=== PATIENT | female | born 1955 | race Caucasian/White ===

== ENCOUNTER 2018-05-20 11:51 | Inpatient (IN) | payer OTHER ==
[~2018-05-20] VITALS: Ht 160 cm; Wt 111.6 kg
[2018-05-20] MEDS ORDERED: LABETALOL HCL 5 MG/ML 20ML VIAL IV STA (12:20)
[2018-05-20 12:47] LABS: BASOPHILS % 0.5 % (0.0-1.0); EOSINOPHILS # (AUTO) 0.1 (0.0-0.4); EOSINOPHILS % 1.5 % (0.0-6.0); HEMATOCRIT 47.3 % (34.2-44.1); HEMOGLOBIN 15.2 g/dL (12.0-16.0); LYMPHOCYTES # (AUTO) 1.5 (1.0-3.2); LYMPHOCYTES % 18.7 % (18.0-39.1); MEAN CORPUSCULAR HGB CONC 32.1 g/dL (31-35); MEAN CORPUSCULAR VOLUME 93.5 fL (81-99); MONOCYTES # (AUTO) 0.5 (0.2-0.8); MONOCYTES % 6.8 % (4.4-11.3); NEUTROPHILS # (AUTO) 5.7 (2.1-6.9); NEUTROPHILS % 72.2 % (38.7-80.0); PLATELET COUNT 276 x10e3/uL (140-360); RED BLOOD COUNT 5.06 x10e6/uL (3.6-5.1)
[2018-05-20 12:53] LABS: INR 0.78; PROTHROMBIN TIME 11.3 seconds (11.9-14.5)
[2018-05-20 12:54] LABS: PARTIAL THROMBOPLASTIN TIME 52.4 seconds (23.8-35.5)
--- NOTE | 2018-05-20 12:54 | Diagnostic Imaging Report ---
Examination: Single AP view of the chest. COMPARISON: None. INDICATION: Left-sided weakness and numbness DISCUSSION: Lungs are well-inflated and without focal consolidation, pleural effusion, or pneumothorax. Cardiomediastinal contour and pulmonary vasculature are within normal limits for portable, AP technique. No acute osseous abnormality. Cervical spine fusion hardware. IMPRESSION: No acute cardiopulmonary abnormality. Signed by: Dr. David Vieyra M.D. on 05/20/2018 12:50 PM
[2018-05-20 12:56] LABS: ALANINE AMINOTRANSFERASE 9 IU/L (0-55); ALBUMIN 3.9 g/dL (3.5-5.0); ALBUMIN/GLOBULIN RATIO 0.9 (0.8-2.0); ALKALINE PHOSPHATASE 96 IU/L (40-150); ANION GAP 14.1 mmol/L (8-16); BLOOD UREA NITROGEN 9 mg/dL (7-26); BUN/CREATININE RATIO 12 (6-25); CALCIUM 10.2 mg/dL (8.4-10.2); CARBON DIOXIDE 23 mmol/L (22-29); CHLORIDE 104 mmol/L (98-107); CREATINE KINASE 105 IU/L (29-168); CREATININE, SERUM 0.74 mg/dL (0.57-1.11); EST GLOMERULAR FILTRATION RATE > 60 ML/MIN (60-); GLUCOSE 126 mg/dL (74-118); POTASSIUM 4.1 mmol/L (3.5-5.1); SODIUM 137 mmol/L (136-145)
--- NOTE | 2018-05-20 13:01 | Diagnostic Imaging Report ---
Exam: Head CT without contrast History: Left-sided weakness, numbness and dizziness Comparison studies: None Technique: Axial images were obtained from the skull base to the vertex. Coronal and sagittal images reconstructed from the axial data. Dose modulation, iterative reconstruction, and/or weight based adjustment of the mA/kV was utilized to reduce the radiation dose to as low as reasonably achievable. Radiation dose: Total DLP: 832 mGy*cm. Estimated effective dose: DLP x 0.015 Intravenous contrast: None Findings: Scalp: No abnormalities. Bones: No fractures, blastic or lytic lesions. Brain sulci: Appropriate for age. Ventricles: Normal in size and configuration. No hydrocephalus. Extra-axial spaces: No masses, no fluid collection. Parenchyma: No abnormal densities. No mass, acute hemorrhage or acute or chronic cortical insult.. Sellar/suprasellar region: No abnormalities. Craniocervical junction: Patent foramen magnum. No Chiari one malformation. Incidental findings: Atherosclerotic calcifications in the carotid siphons. IMPRESSION: No acute intracranial abnormalities. Signed by: Dr. David Echavarria M.D. on 05/20/2018 12:57 PM
[2018-05-20 13:19] LABS: BILIRUBIN,URINE NEGATIVE (NEGATIVE); CLARITY,URINE SL CLOUDY (CLEAR); COLOR,URINE YELLOW (YELLOW); KETONES,URINE NEGATIVE (NEGATIVE); LEUKOCYTE ESTERASE ,URINE TRACE (NEGATIVE); NITRITE,URINE NEGATIVE (NEGATIVE); PROTEIN,URINE DIPSTICK NEGATIVE (NEGATIVE); URINE UROBILINOGEN 0.2 mg/dL (0.2 - 1)
[2018-05-20 13:22] LABS: BACTERIA,URINE MODERATE /HPF; EPITHELIAL CELLS,URINE MANY /LPF
[2018-05-20] MEDS ORDERED: HYDRALAZINE HCL 20 MG/ML VIAL IV ONE (14:00)
[2018-05-20] MEDS ORDERED: ASPIRIN 81 MG CHEW TAB PO ONE (14:00)
--- OUTSIDE RECORDS SUMMARY | 2018-05-20 15:03 | XMS REPORT ---
Author Author [facility] Address Unknown Phone Unavailable Care Team Providers Care Sock Drier Name Role Phone Becca BUSH Unavailable Unavailable Problems This patient has no known problems. Allergies, Adverse Reactions, Alerts This patient has no known allergies or adverse reactions. Medications This patient has no known medications. Results Test Description Test Time Test Comments Text Results Atomic Results Result Comments CT BRAIN WO 2018-05-20 12:55:00 [facility] [address] [address] Patient Name: AILYN PAYTON MR #: [id number] : 1955 Age/Sex: 62/F Req #: [id number] Adm Physician: Ordered by: PO IBARRA BENCH SHEAR OPERATOR Report #: [id number] Location: ER Room/Bed: Procedure: [id number] CT/CT BRAIN WO Exam Date: 05/20/18 Exam Time: 1225 REPORT STATUS: Signed Exam: Head CT without contrast History: Left-sided weakness, numbness and dizziness Comparison studies: None Technique: Axial images were obtained from the skull base to the vertex. Coronal and sagittal images reconstructed from the axial data. Dose modulation, iterative reconstruction, and/or weight based adjustment of the mA/kV was utilized to reduce the radiation dose to as low as reasonably achievable. Radiation dose: Total DLP: 832 mGy*cm. Estimated effective dose: DLP x 0.015 Intravenous contrast: None Findings: Scalp: No abnormalities. Bones: No fractures, blastic or lytic lesions. Brain sulci: Appropriate for age. Ventricles: Normal in size and configuration. No hydrocephalus. Extra-axial spaces: No masses, no fluid collection. Parenchyma: No abnormal densities. No mass, acute hemorrhage or acute or chronic cortical insult.. Sellar/suprasellar region: No abnormalities. Craniocervical junction: Patent foramen magnum. No Chiari one malformation. Incidental findings: Athe rosclerotic calcifications in the carotid siphons. IMPRESSION: No acute intracranial abnormalities. Signed by: Dr. Peggy Echavarria M.D. on 05/20/2018 12:57 PM Dictated By: PEGGY ECHAVARRIA MD [id number] Transcribed By: JEFFERY on 05/20/18 1257 COPY TO: PO IBARRA NP CHEST SINGLE (PORTABLE) 2018-05-20 12:49:00 [address] [address] Patient Name: AILYN PAYTON MR #: [id number] : 1955 Age/Sex: 62/F Req #: [id number] Adm Physician: Ordered by: PO IBARRA NP Report #: [id number] Location: ER Room/Bed: Procedure: [id number] DX/CHEST SINGLE (PORTABLE) Exam Date: 05/20/18 Exam Time: 1240 REPORT STATUS: Signed Examination: Single AP view of the chest. COMPARIS ON: None. INDICATION: Left-sided weakness and numbness DISCUSSION: Lungs are well-inflated and without focal consolidation, pleural effusion, or pneumothorax. Cardiomediastinal contour and pulmonary vasculature are within normal limits for portable, AP technique. No acute osseous abnormality. Cervical spine fusion hardware. IMPRESSION: No acute cardiopulmonary abnormality. Signed by: Dr. Peggy Watt M.D. on 05/20/2018 12:50 PM Dictated By: PEGGY WATT MD 1250 Transcribed By: JEFFERY on 05/20/18 1250 COPY TO: PO IBARRA NP
[2018-05-20] MEDS ORDERED: LORAZEPAM INJ 2 MG/ML VIAL ONE (15:44)
[2018-05-20] MEDS ORDERED: LORAZEPAM INJ 2 MG/ML VIAL IV ONE ×2 (15:45→16:16)
[2018-05-20 17:38] VITALS: BP 185/94
[2018-05-20] MEDS: SODIUM CHLORIDE 0.9% 1000ML 1,000 ML IV SCH (17:59)
--- NOTE | 2018-05-20 18:08 | NUR ---
PAGED DR. SWENSON REGARDING BP 185/94. WAITING FOR CALL BACK AT THIS TIME.
[2018-05-20] MEDS ORDERED: AMLODIPINE BESYLATE 5 MG TAB PO ONE (18:15)
[2018-05-20 18:18] VITALS: BP 185/94
[2018-05-20 18:20] VITALS: BP 185/94
--- NOTE | 2018-05-20 18:30 | NUR ---
SPOKE WITH DR. MARTINEZ REGARDING ELEVATED BP. ORDER FOR NORVASC 5 MG PO ONCE NOW AND LISINOPRIL 10 MG PO AT 2100.
[2018-05-20 20:00] VITALS: BP 169/99
--- NOTE | 2018-05-20 20:54 | NUR ---
x3 assist to bedside commode, patient very unsteady, weak and unsafe for transfers. Iv to R AC bleeding, and removed, pressure dressing applied. linens changed, gown changed, new IV to be started. patient back in bed, diaper applied, instructed to call for bedpan for voiding/BM's. bed alarm applied. instructed family members on importance of calling for assistance, all verbalized understanding. bed locked, lowest position, call light and belongings within easy reach. will continue to monitor the patient closely.
[2018-05-20 21:00] VITALS: BP 169/99
[2018-05-20] MEDS ORDERED: LISINOPRIL 10 MG TAB PO SCH (21:00)
[2018-05-20] MEDS ORDERED: LISINOPRIL 10 MG TAB PO ONE (21:00)
--- NOTE | 2018-05-20 21:02 | Diagnostic Imaging Report ---
EXAMINATION: MRI of the brain without contrast. HISTORY: Left-sided weakness and numbness for the last day COMPARISON: Head CT 05/20/2018 TECHNIQUE: Sagittal T2; axial DWI, T2, FLAIR, T1-IR, T2 gradient echo; coronal FLAIR. IMAGE QUALITY: Motion artifact limiting evaluation of all of the sequences.. FINDINGS: Parenchyma: 1. A few scattered white matter T2 and FLAIR hyperintense foci, most likely nonspecific chronic microvascular changes, within normal limits for age. 2. No mass, hemorrhage, acute or chronic infarcts. Skull: Unremarkable. Vessels: Expected flow voids present in the major arteries and dural sinuses. Extra-axial spaces: No abnormal signal intensity or mass effect. Brain volume: Within normal limits for age. Ventricles: No hydrocephalus or displacement. Foramen magnum: Unremarkable. Sella: Unremarkable. Paranasal / mastoid sinuses: No significant inflammatory disease. IMPRESSION: 1. No acute infarcts. 2. Mild chronic microvascular ischemic changes. Signed by: Dr. Adelina Shultz M.D. on 05/20/2018 8:59 PM
--- NOTE | 2018-05-20 23:32 | NUR ---
patient is restless, anxious, and becoming increasingly agitated. spoke with dr. rubio, chlorination operator for dr. horner, received and implemented new orders.
[2018-05-20] MEDS: LORAZEPAM 0.5 MG TAB PO PRN (23:52)
[2018-05-21] VITALS (8 sets, daily range): BP systolic 136–178; BP diastolic 65–96
[2018-05-21] MEDS: ONDANSETRON HCL INJ 2MG/ML 2ML 2 MG/ML VIAL IV PRN (00:30)
[2018-05-21] MEDS: SODIUM CHLORIDE 0.9% 1000ML 1,000 ML IV SCH ×2 (03:13→10:44)
--- NOTE | 2018-05-21 06:18 | Diagnostic Imaging Report ---
Examination: Single AP view of the chest. COMPARISON: May 20, 2018 INDICATION: Altered mental status DISCUSSION: Lines/tubes: None. Lungs: The lungs are well inflated and clear. No pneumonia or pulmonary edema. Pleura: No pleural effusion or pneumothorax. Heart and mediastinum: The heart and the mediastinum are unremarkable. Bones and soft tissues: No acute bony abnormalities. IMPRESSION: 1. No acute cardiopulmonary abnormalities. Signed by: Dr. Trae Machuca M.D. on 05/21/2018 6:14 AM
[2018-05-21 06:35] LABS: BASOPHILS % 0.3 % (0.0-1.0); EOSINOPHILS % 0.2 % (0.0-6.0); HEMATOCRIT 39.2 % (34.2-44.1); HEMOGLOBIN 12.7 g/dL (12.0-16.0); LYMPHOCYTES # (AUTO) 1.4 (1.0-3.2); LYMPHOCYTES % 16.2 % (18.0-39.1); MEAN CORPUSCULAR HEMOGLOBIN 30.2 pg (28-32); MEAN CORPUSCULAR HGB CONC 32.4 g/dL (31-35); MEAN CORPUSCULAR VOLUME 93.3 fL (81-99); MONOCYTES # (AUTO) 0.6 (0.2-0.8); MONOCYTES % 7.3 % (4.4-11.3); NEUTROPHILS # (AUTO) 6.6 (2.1-6.9); NEUTROPHILS % 75.7 % (38.7-80.0); PLATELET COUNT 231 x10e3/uL (140-360); RED CELL DISTRIBUTION WIDTH 13.2 % (11.7-14.4)
[2018-05-21 06:41] LABS: ANION GAP 10.2 mmol/L (8-16); BLOOD UREA NITROGEN 7 mg/dL (7-26); BUN/CREATININE RATIO 10 (6-25); CALCIUM 8.8 mg/dL (8.4-10.2); CARBON DIOXIDE 24 mmol/L (22-29); CHLORIDE 107 mmol/L (98-107); CREATININE, SERUM 0.69 mg/dL (0.57-1.11); EST GLOMERULAR FILTRATION RATE > 60 ML/MIN (60-); GLUCOSE 113 mg/dL (74-118); POTASSIUM 3.2 mmol/L (3.5-5.1); SODIUM 138 mmol/L (136-145)
[2018-05-21 07:00] LABS: CREATINE KINASE MB 2.1 ng/mL (0-5.0)
[2018-05-21] MEDS: TRAMADOL HCL 50 MG TAB PO PRN ×3 (07:00→20:00)
--- NOTE | 2018-05-21 07:58 | NUR ---
RECEIVED PATIENT AWAKE IN BED. PATIENT ANXIOUS AT THIS TIME, WILL GIVE ATIVAN PRN. SPOUSE AT BEDSIDE, CALL LIGHT IN REACH. WILL CONTINUE TO MONITOR.
[2018-05-21] MEDS: LORAZEPAM 0.5 MG TAB PO PRN ×2 (08:28→22:57)
[2018-05-21] MEDS ORDERED: AMLODIPINE BESYLATE 5 MG TAB PO SCH (09:00)
[2018-05-21] MEDS: ASPIRIN 325 MG TAB EC PO SCH (13:50)
[2018-05-21] MEDS ORDERED: POTASSIUM CHLORIDE 10MEQ EA PO NR (14:15)
[2018-05-21 14:44] LABS: CREATINE KINASE MB 3.2 ng/mL (0-5.0)
--- NOTE | 2018-05-21 15:58 | NUR ---
PATIENT LEFT UNIT FOR CAT SCAN AT THIS TIME
--- NOTE | 2018-05-21 16:25 | NUR ---
PATIENT BACK FROM CAT SCAN AT THIS TIME.
[2018-05-21] MEDS: ENOXAPARIN SOD INJ 40 MG/0.4 ML SYR SC SCH (17:24)
[2018-05-21] MEDS: FAMOTIDINE 20 MG TAB PO SCH (17:24)
[2018-05-21] MEDS ORDERED: LISINOPRIL 10 MG TAB PO SCH (18:00)
[2018-05-21] MEDS ORDERED: SODIUM CHLORIDE 0.9% 100 ML 100 ML ONE (18:08)
[2018-05-21] MEDS ORDERED: IOPAMIDOL 370 MG/ML 200 ML INFUS..BTL INJ ONE (18:09)
--- NOTE | 2018-05-21 18:22 | NUR ---
PAGED DR. MARTINEZ FOR NEW ORDERS REGARDING PATIENT STATING DIFFICULT URINATION.
--- NOTE | 2018-05-21 18:32 | Diagnostic Imaging Report ---
History:Stroke, Comparison studies:None Technique: Axial images were obtained from the thoracic inlet. 3-D reconstructions and maximum intensity projection reformats were performed. Coronal and sagittal images reconstructed from the axial data. Intravenous contrast: 100 cc of Omnipaque 300. Dose modulation, iterative reconstruction, and/or weight based adjustment of the mA/kV was utilized to reduce the radiation dose to as low as reasonably achievable. Findings: Percentage of stenosis will be based on the NASCET criteria Aortic arch and major vessels: Patent. No abnormalities. Common origin of the brachiocephalic and left common carotid artery. Common carotid arteries: Patent. No abnormalities. Right internal carotid artery: Patent. No abnormalities. 0% stenosis. Left internal carotid artery: Patent. Non calcified atherosclerotic plaque at the bulb results in 50-65% stenosis. Nonstenotic calcified plaque at the carotid siphons. 40-60% stenosis of the proximal right M1, the remaining MCAs and ACAs are normal Right vertebral artery: Patent. No abnormalities. Left vertebral artery: Patent. No abnormalities. Basilar artery: Patent. No abnormalities. Posterior cerebral arteries: Patent. No abnormalities. Anatomical variants: Acom: Patent . Pcoms: Hypoplastic. Vertebral arteries: Left dominant IMPRESSION: Cervical CTA: 1. Moderate stenosis at the left carotid bulb, secondary to non calcified plaque. No other stenosis in the neck Intracranial CTA: 1. Moderate stenosis at the proximal right M1 segment (MCA). No other intracranial stenosis . Signed by: DR Dillon Quintero M.D. on 05/21/2018 6:29 PM
--- NOTE | 2018-05-21 19:01 | Consultation ---
DATE OF CONSULTATION: Neurology consult note HISTORY OF PRESENT ILLNESS: Ms. Johnson is a 62-year-old right-hand dominant woman with no known significant past medical history, admitted to [facility] on May 20, 2018 with symptoms suspicious for a stroke. At approximately 0300 hours on the day of admission, the patient awoke from sleep and noted a left facial droop, left hemiparesis affecting the arm and leg, poor balance with gait impairment, dizziness which cannot be further described, and nausea without vomiting. Ms. Johnson does not report a visual field cut or other disturbance, dysarthria, aphasia, hemihypesthesia, or confusion associated with the above symptoms. The presence of left hemiparesis caused the patient to fall as she stood from bed to use the restroom. The fall awoke Ms. Johnson's , who proceeded to the patient's side of the bed to help Ms. Johnson stand from the floor. Ms. Johnson reports her symptoms "felt better" after standing and walking around, "a little bit." Therefore, after using the restroom, the patient returned to sleep. Ms. Johnson awoke for the day at approximately 0900 hours to 1000 hours on May 20, 2018. When she awoke, the symptoms described above persisted. Therefore, the patient had her bring her to the emergency center at [facility] for further evaluation of her symptoms. Upon arrival in the emergency center, the patient was afebrile with a blood pressure of 218/105 mmHg and a pulse of 103 beats per minute. Her neurological examination was significant for mild left-sided facial weakness with sparing of the forehead and mild left-sided pronator drift. While in the emergency center, a CT of the brain without contrast was performed. This study did not reveal evidence of recent large territorial ischemia or hemorrhage. Ms. Johnson was not considered a candidate for intravenous thrombolysis due to presentation outside the window for intravenous tPA. The patient was admitted to [facility] as an inpatient for further evaluation and treatment of her symptoms. Ms. Johnson does not report experiencing similar symptoms previously. She does not report experiencing a severe headache associated with the above symptoms. The patient does report taking a baby aspirin "pretty much every day." Ms. Johnson has not had an annual physical examination since approximately 2005. REVIEW OF SYSTEMS: Nausea, left facial weakness, left hemiparesis, impairment of balance and gait, and dizziness. Otherwise, a 12-point review of systems is negative. PAST MEDICAL HISTORY: None. The patient has not seen a physician since approximately 2005. PAST SURGICAL HISTORY: Cervical spine surgery. PAST HOSPITALIZATIONS: Surgeries/procedures as listed, childbirth x3. FAMILY MEDICAL HISTORY: Hypertension, hyperlipidemia, diabetes mellitus, coronary artery disease with myocardial infarction, and stroke. SOCIAL HISTORY: Ms. Johnson is . She is a bdup-xo-brhe spouse. The patient does report a prior history of tobacco use, but quit smoking cigarettes approximately five years ago. The patient does not report current or prior alcohol or recreational drug use. HOME MEDICATIONS: Aspirin 81 mg by mouth nearly every day. Ibuprofen as needed. Tylenol as needed. ALLERGIES: NO KNOWN DRUG ALLERGIES. NO KNOWN FOOD ALLERGIES. NO KNOWN ALLERGIES TO LATEX. NO KNOWN ALLERGIES TO IODINE OR OTHER CONTRAST MATERIALS. PHYSICAL EXAMINATION: VITAL SIGNS: Height 63 inches, weight 246.56 pounds, BMI 43.7 kg/m2, blood pressure 136/65 mmHg, pulse 86 beats per minute, respiratory rate 20 breaths per minute, and oxygen saturation 94% on room air. GENERAL: The patient is awake and alert, does not appear distressed. Morbidly obese. HEENT: Normocephalic, atraumatic. Pupils are equal, round, and reactive to light. Moist mucous membranes. NECK: Supple. No appreciable thyromegaly. No appreciable carotid bruits. CARDIOVASCULAR: S1, S2, regular rate and rhythm. No murmurs, rubs, or gallops. RESPIRATORY: Clear to auscultation bilaterally. No wheezes, rhonchi, or rales. EXTREMITIES: The skin is warm and dry. No clubbing, cyanosis, or edema. The posterior tibial and dorsalis pedis pulses are 2+ and symmetric. SKIN: No rashes or lesions. NEUROLOGIC: MEMORY/ATTENTION: The patient is awake and alert, oriented to person, place, time, and situation. Cranial Nerves: Cranial nerve I - not tested. Cranial nerve II, III, IV, and - pupils are equal and round, react briskly to light (from 4 mm to 2 mm). Extraocular movements are intact, but there is a rightward gaze preference. No nystagmus. Cranial nerve V - sensation to light touch and pinprick is intact in the bilateral V1 through V3 distributions. Strength of the temporalis and masseter muscles are within normal limits. Cranial nerve VII - the face is asymmetric on the left as are all facial movements. There is moderate left central facial weakness present. Cranial nerve VIII - hearing is intact to finger rub bilaterally. Cranial nerve IX, X - the soft palate elevates equally and symmetrically. Cranial nerve XI - normal strength of the bilateral sternocleidomastoid and trapezius muscles. Cranial nerve XII - the tongue protrudes midline and moves symmetrically from bddx-mh-wzys. STRENGTH: Bulk is normal. Strength is 5/5 in the right deltoid, biceps, triceps, wrist flexors and extensors, finger flexors and extensors, intrinsic hand muscles, hip flexors, knee flexors and extensors, ankle dorsiflexion and plantar flexion, and intrinsic foot muscles. The left arm is plegic. Strength in the left leg is approximately 3/5. Tone is mildly increased in the left arm and left leg. DTRs: Deep tendon reflexes are 3+ and symmetric at the triceps, biceps, brachioradialis, patellas, and Achilles. Plantar responses are extensor bilaterally. SENSATION: Sensation is intact to light touch and pinprick in both arms and both legs. Possible left partial neglect. CEREBELLAR: Sgicmf-hetk-botvqk and heel-weiss movements are intact on the right without dysmetria or other impairment. These movements are not intact on the left, but within the Bounds of paresis. Gait: Deferred. SPEECH: Spontaneous speech is mildly dysarthric without appreciable aphasia. Repetition is intact. INVOLUNTARY MOVEMENTS: None. PRONATOR DRIFT: As per motor exam. LABORATORY DATA: The most recent basic metabolic panel is significant for potassium of 3.2. A liver function panel drawn on May 20, 2018 was significant for a total protein of 8.4 and a globulin of 4.5. Cardiac enzymes are negative x3. The CBC with differential and platelets is unremarkable. PT 11.3, INR 0.78, and PTT 52.4. A urinalysis reveals slightly cloudy urine with 1+ blood, trace leukocyte esterase, 6-10 red blood cells, 11-20 white blood cells, many urine epithelial cells, and moderate urine bacteria. A urine culture was not collected. DIAGNOSTIC STUDIES: Electrocardiogram 05/20/2018: Normal sinus rhythm at 79 beats per minute. Chest x-ray 05/20/2018: No acute cardiopulmonary abnormality. CT of the brain without contrast 05/20/2018: On my review, there is no evidence of recent large territorial ischemia, hemorrhage, mass, or mass effect. Cerebral volumes appear appropriate for age. There are no findings suggestive of chronic small vessel ischemic disease. Echocardiogram of 05/20/2018: Ejection fraction 55%. Concentric left ventricular hypertrophy. Bilateral carotid artery ultrasound with Doppler of 05/20/2018: There is atherosclerosis without hemodynamically significant stenosis in the bilateral external carotid arteries. There is atherosclerosis with possible hemodynamically significant stenosis at the left carotid bulb and bifurcation. Flow is antegrade in the bilateral vertebral arteries. MRI of the brain without contrast 05/20/2018: On my review, there is no evidence of definite recent large territorial ischemia or hemorrhage. However, the images are degraded by motion artifact. Therefore, it is possible for the patient to have a small lacunar infarct which may not be adequately assessed with this examination. Cerebral volumes are appropriate for age. There are scattered T2/FLAIR hyperintense foci in the supratentorial deep white matter compatible with mild chronic small vessel ischemic disease. Chest x-ray 05/21/2018: No acute cardiopulmonary abnormalities. ASSESSMENT AND PLAN: Ms. Johnson is a 62-year-old right-hand dominant woman with no known past medical history, admitted to [facility] on May 20, 2018 with symptoms suspicious for stroke. The patient's neurological examination is significant for moderate central left facial weakness, left hemiparesis, and there is a left hemiparesis, possible left partial neglect, and mild dysarthria. The patient's laboratory data and other diagnostic studies have been reviewed and are documented above. Despite the negative MRI of the brain without contrast, clinically, Ms. Johnson has had a stroke, probably in the subcortical right middle cerebral artery distribution. RECOMMENDATIONS: As follows: 1. A lipid panel and hemoglobin A1c will be ordered to complete a stroke evaluation. 2. A CTA of the brain and neck will be ordered to further evaluate for possible critical left carotid artery stenosis. 3. Aspirin 325 mg by mouth daily for stroke prophylaxis will be prescribed. 4. Allow permissive hypertension for 24-48 hours following a stroke, so as not to expand the stroke. Additionally, permissive hypertension is appropriate in the setting of possible critical artery stenosis. Therefore, the previously described lisinopril and amlodipine will be discontinued. 5. The patient's goal total cholesterol is less than 200 with an LDL of less than 70. Follow up the results of the lipid panel and prescribe a statin medication as appropriate. 6. The patient's goal hemoglobin A1c is less than 7.0. Follow up the results of the hemoglobin A1c and prescribed medications as appropriate. Tight glycemic control is recommended while the patient is in the hospital. 7. Physical and speech therapy consultations will be ordered. 8. GI prophylaxis with Pepcid 20 mg by mouth twice daily with meals. DVT prophylaxis with Lovenox 40 mg subcutaneously daily. 9. Defer treatment of the remaining medical comorbidities to the primary and other services following the patient. Thank you for this consultation. I will continue to follow the patient while she remains in the hospital. TIME SPENT: 70 minutes. Jolanta Arriaga MD CP/RANDA /[id number] MTDD
[2018-05-21] MEDS: CEFTRIAXONE SOD 1 GM/NS 50 ML 50 ML IV SCH (20:00)
[2018-05-22] VITALS (7 sets, daily range): BP systolic 120–194; BP diastolic 76–108
[2018-05-22] MEDS: TRAMADOL HCL 50 MG TAB PO PRN ×4 (02:40→21:50)
[2018-05-22 07:03] LABS: BASOPHILS % 0.5 % (0.0-1.0); EOSINOPHILS # (AUTO) 0.2 (0.0-0.4); EOSINOPHILS % 2.7 % (0.0-6.0); HEMATOCRIT 40.2 % (34.2-44.1); HEMOGLOBIN 12.7 g/dL (12.0-16.0); LYMPHOCYTES # (AUTO) 2.4 (1.0-3.2); LYMPHOCYTES % 31.9 % (18.0-39.1); MEAN CORPUSCULAR HEMOGLOBIN 30.2 pg (28-32); MEAN CORPUSCULAR HGB CONC 31.6 g/dL (31-35); MEAN CORPUSCULAR VOLUME 95.7 fL (81-99); MONOCYTES % 12.9 % (4.4-11.3); NEUTROPHILS % 51.6 % (38.7-80.0); PLATELET COUNT 227 x10e3/uL (140-360); RED CELL DISTRIBUTION WIDTH 13.2 % (11.7-14.4)
--- NOTE | 2018-05-22 07:32 | NUR ---
RECEIVED PATIENT ASLEEP IN BED NO SIGNS OF DISTRESS AT THIS TIME. SPOUSE AT BEDSIDE, CALL LIGHT IN REACH WILL CONTINUE TO MONITOR.
[2018-05-22 08:28] LABS: ALANINE AMINOTRANSFERASE 10 IU/L (0-55); ALBUMIN 3.1 g/dL (3.5-5.0); ALBUMIN/GLOBULIN RATIO 0.9 (0.8-2.0); ALKALINE PHOSPHATASE 72 IU/L (40-150); ANION GAP 8.7 mmol/L (8-16); BLOOD UREA NITROGEN < 5 mg/dL (7-26); CALCIUM 8.7 mg/dL (8.4-10.2); CARBON DIOXIDE 24 mmol/L (22-29); CHLORIDE 108 mmol/L (98-107); CREATININE, SERUM 0.65 mg/dL (0.57-1.11); EST GLOMERULAR FILTRATION RATE > 60 ML/MIN (60-); GLUCOSE 94 mg/dL (74-118); POTASSIUM 3.7 mmol/L (3.5-5.1); SODIUM 137 mmol/L (136-145)
[2018-05-22 08:31] LABS: BUN/CREATININE RATIO 8 (6-25)
--- NOTE | 2018-05-22 09:30 | NUR ---
PATIENT A/O X3, EVEN RESPIRATIONS ON RA. BOWELS ACTIVE, SKIN INTACT, NO EDEMA. LEFT SIDE MILD FACIAL DROOP, SPEECH SLURRED. PATIENT VOIDS IN DIAPER. RIGHT HAND 20 GAUGE IV WITH IV FLUIDS AT 75 CC/HR. RIGHT FA 20 GAUGE SL. FAMILY AT BEDSIDE. NO SIGNS OF DISTRESS AT THIS TIME. CALL LIGHT IN REACH, WILL CONTINUE TO MONITOR.
[2018-05-22] MEDS: FAMOTIDINE 20 MG TAB PO SCH ×2 (09:37→17:21)
[2018-05-22] MEDS: ASPIRIN 325 MG TAB EC PO SCH (09:37)
[2018-05-22] MEDS: AMLODIPINE BESYLATE 10 MG TAB PO SCH (11:55)
[2018-05-22] MEDS: SODIUM CHLORIDE 0.9% 1000ML 1,000 ML IV SCH ×2 (15:18→19:13)
[2018-05-22] MEDS: ENOXAPARIN SOD INJ 40 MG/0.4 ML SYR SC SCH (17:21)
[2018-05-22] MEDS: CEFTRIAXONE SOD 1 GM/NS 50 ML 50 ML IV SCH (19:34)
[2018-05-22] MEDS: LORAZEPAM 0.5 MG TAB PO PRN (19:34)
[2018-05-22] MEDS: ATORVASTATIN 20 MG TAB PO SCH (21:50)
[2018-05-23 00:09] VITALS: BP 176/84
[2018-05-23 04:38] VITALS: BP 166/77
[2018-05-23] MEDS: SODIUM CHLORIDE 0.9% 1000ML 1,000 ML IV SCH ×2 (05:01→23:14)
[2018-05-23 06:52] LABS: BASOPHILS # (AUTO) 0.1 (0.0-0.1); BASOPHILS % 0.6 % (0.0-1.0); EOSINOPHILS # (AUTO) 0.3 (0.0-0.4); EOSINOPHILS % 3.3 % (0.0-6.0); HEMATOCRIT 39.8 % (34.2-44.1); HEMOGLOBIN 12.6 g/dL (12.0-16.0); LYMPHOCYTES # (AUTO) 1.8 (1.0-3.2); MEAN CORPUSCULAR HEMOGLOBIN 29.8 pg (28-32); MEAN CORPUSCULAR HGB CONC 31.7 g/dL (31-35); MEAN CORPUSCULAR VOLUME 94.1 fL (81-99); MONOCYTES % 11.3 % (4.4-11.3); NEUTROPHILS # (AUTO) 5.7 (2.1-6.9); NEUTROPHILS % 64.4 % (38.7-80.0); PLATELET COUNT 224 x10e3/uL (140-360); RED BLOOD COUNT 4.23 x10e6/uL (3.6-5.1); RED CELL DISTRIBUTION WIDTH 12.9 % (11.7-14.4)
--- NOTE | 2018-05-23 07:20 | NUR ---
BEDSIDE ROUNDS COMPLETE NO DISTRESS NOTED, UPDATED ON POC VOICED UNDERSTANDING, CO PAIN 05/25 WILL MEDICATE WITH PRN MEDS, IVF INFUSING TO R FA 20G NO SS OF INFILTRATION NOTED, R AC 20G SL NO SS OF INFILTRATION NOTED, NO OTHER CO VOICED CALL LIGHT IN REACH WILL CONTINUE OT MONITOR
[2018-05-23 07:34] LABS: ALANINE AMINOTRANSFERASE 8 IU/L (0-55); ALBUMIN 2.9 g/dL (3.5-5.0); ALBUMIN/GLOBULIN RATIO 0.9 (0.8-2.0); ALKALINE PHOSPHATASE 73 IU/L (40-150); BLOOD UREA NITROGEN 5 mg/dL (7-26); BUN/CREATININE RATIO 8 (6-25); CALCIUM 8.7 mg/dL (8.4-10.2); CARBON DIOXIDE 28 mmol/L (22-29); CHLORIDE 104 mmol/L (98-107); CREATININE, SERUM 0.65 mg/dL (0.57-1.11); EST GLOMERULAR FILTRATION RATE > 60 ML/MIN (60-); GLUCOSE 101 mg/dL (74-118); SODIUM 137 mmol/L (136-145)
[2018-05-23 07:50] VITALS: BP 175/90
[2018-05-23] MEDS: TRAMADOL HCL 50 MG TAB PO PRN ×3 (07:50→22:17)
[2018-05-23] MEDS: AMLODIPINE BESYLATE 10 MG TAB PO SCH (07:50)
[2018-05-23] MEDS: FAMOTIDINE 20 MG TAB PO SCH ×2 (07:50→18:13)
[2018-05-23] MEDS: ASPIRIN 325 MG TAB EC PO SCH (07:50)
[2018-05-23 08:28] VITALS: BP 175/90
[2018-05-23] MEDS: LORAZEPAM 0.5 MG TAB PO PRN ×2 (10:00→18:18)
[2018-05-23 12:37] VITALS: BP 167/98
--- NOTE | 2018-05-23 15:25 | NUR ---
REPORT CALLED TO RECEIVING NURSE, PT TRANSFERRED TO [facility] WILL ALL BELONGINGS, AT BEDSIDE WILL FOLLOW. PT LEFT IN STABLE CONDITION
--- NOTE | 2018-05-23 15:30 | NUR ---
[facility] Ptis aox4 and able to verbalize needs. Pt denies any pain at this time. Family is at the bedside.
[2018-05-23] MEDS: METOPROLOL SUCCINATE 25 MG TAB XL PO SCH (18:13)
[2018-05-23] MEDS: ENOXAPARIN SOD INJ 40 MG/0.4 ML SYR SC SCH (18:13)
[2018-05-23] MEDS: CEFTRIAXONE SOD 1 GM/NS 50 ML 50 ML IV SCH (19:08)
[2018-05-23 20:22] VITALS: BP 182/90
--- NOTE | 2018-05-23 20:23 | NUR ---
RECEIVED PT IN BED AOX3 .LEFT SIDED WEAKNESS RT AC 18G 75 CC/HR .RESPIRATIONS ARE EVEN AND UNLABORED .SKIN WARM AND DRY TO TOUCH .DENIES PAIN .CALL LIGHT WITH IN REACH.FAMILY AT THE BEDSIDE .CONTINUE TO MONITOR
[2018-05-23] MEDS: ATORVASTATIN 20 MG TAB PO SCH (22:17)
--- NOTE | 2018-05-23 23:38 | Consultation ---
DATE OF CONSULTATION: 05/23/2018 I would like to thank Dr. Diaz for asking me to see Ms. Johnson in consultation. REASON FOR CONSULTATION: 1. CVA with left-sided hemiparesis. 2. Carotid stenosis. 3. The patient with hypertension. HISTORY OF PRESENT ILLNESS: A 62-year-old female with right hand dominance, who is admitted to the hospital on May 20, 2018, was suspicious for stroke. Around 3 in the morning, the patient awoke from her sleep and was found to have left-sided facial droop. Had some nausea. The patient went to use the bathroom and she fell. The patient was assisted back to the bed and she went back to sleep, but then she woke up about 9 or 10 o'clock on that same day when the above symptoms persisted, therefore they decided to come to [facility]. The patient was hypertensive when she came in and had mild left-sided facial weakness as well as some left upper extremity and lower extremity weakness. She was not considered a tPA candidate, but overtime, her weakness on left side has worsened. She underwent brain CT on May 20 and that showed no acute intracranial abnormalities. Later on that night, she went for MRI which should no acute infarction, mild chronic microvascular ischemic changes. She was seen by Dr. Arriaga and underwent workup. CTA was recommended and performed, found to have moderate stenosis M1 segment of MCA. CTA of the head showed moderate stenosis of the carotid bulb secondary to noncalcified plaque, moderate stenosis of right M1 segment of the MCA. The patient is having significant weakness in the left arm and leg. At this time, I have been asked to evaluate for rehab needs. PAST MEDICAL HISTORY: She has not seen a physician since 2005, but does have hypertension. PAST SURGICAL HISTORY: Cervical spine surgery. FAMILY HISTORY: Hypertension, hyperlipidemia, diabetes, coronary artery disease, SD, and stroke runs in the family. SOCIAL HISTORY: Lives with spouse and her family in a one-dayday home. She is otherwise independent ambulating, did everything on her own. HABITS: Quit smoking cigarettes five years ago. Nondrinker. ALLERGIES: NO KNOWN DRUG ALLERGIES. REVIEW OF SYSTEMS: Essentially negative except for the above findings per family report. LABORATORY DATA: White cell count of 8.9, hemoglobin 12.6, hematocrit 39.8, and platelets of 224. Sodium is 137, potassium 4.0, BUN of 5, creatinine 0.65. Rehab amato, the patient was seen by Physical Therapy and no updated notes available at this time. PHYSICAL EXAMINATION: The patient has good strength and movement on the right side. She does have left-sided facial droop. Her tongue deviates to the right with protrusion. Sensory amato, denies any numbness or tingling in the hands, feet, or face. Manual muscle testing demonstrates 4+/5 strength in the right arm and right leg throughout, and in left upper extremity, she can barely flex her shoulder, she can flex her elbow little bit. College Recruiter essentially . She could hardly move her left hip or knee. Clonus negative bilaterally. No increased tone or passive range of motion on the left side. IMPRESSION: 1. Left-sided hemiparesis with dysarthria, left-sided facial weakness secondary to right MCA cerebrovascular accident. 2. Hypertension. PLAN: PT has been initiated. Speech therapy will also be initiated. We will check with insurance as I think that inpatient rehab would be most appropriate for her to try to improve further functional level. We will follow along with you. Thank you once again for allowing me to participate in care of this unfortunate patient. Albert Claros DO RPL/MODL /[id number]
[2018-05-24] VITALS (8 sets, daily range): BP systolic 132–173; BP diastolic 73–99
[2018-05-24] MEDS: LORAZEPAM 0.5 MG TAB PO PRN ×3 (02:07→18:08)
[2018-05-24] MEDS: ONDANSETRON HCL INJ 2MG/ML 2ML 2 MG/ML VIAL IV PRN (02:29)
--- NOTE | 2018-05-24 04:51 | NUR ---
PT C/O PAIN AND ANXIETY DURING THE SHIFT AND GIVEN TRAMADOL AND ATIVAN .CONTINUE TO MONITOR
[2018-05-24] MEDS: TRAMADOL HCL 50 MG TAB PO PRN ×3 (06:47→22:33)
--- NOTE | 2018-05-24 06:48 | NUR ---
B/P WAS HIGH EARLIER AND CALLED DR RANDHAWA SAID OK AND DR SWENSON B/P MEDS BID STARTING TODAY
--- NOTE | 2018-05-24 07:28 | NUR ---
REPORT GIVEN TO THE ONCOMING NURSE
[2018-05-24] MEDS: ASPIRIN 325 MG TAB EC PO SCH (09:23)
[2018-05-24] MEDS: FAMOTIDINE 20 MG TAB PO SCH ×2 (09:23→16:30)
[2018-05-24] MEDS: METOPROLOL SUCCINATE 25 MG TAB XL PO SCH ×2 (09:23→17:00)
[2018-05-24] MEDS: AMLODIPINE BESYLATE 10 MG TAB PO SCH (09:23)
--- NOTE | 2018-05-24 10:54 | NUR ---
MET W THE PT AND FAMILY AT THE BEDSIDE REGARDING INPT REHAB ORDER. PT HAS [facility] MEDICAID PLAN. EXPLAINED THAT THE PLAN DOES NOT COVER REHAB OR SNF BENEFIT. FAMILY VERBALIZED UNDERSTANDING. DISCUSSED ALTERNATIVES; HOME W HOME PT/OT OR OUTPATIENT PT/OT. VERBALIZED UNDERSTANDING. CALL WAS MADE TO NICOLLE GONZALEZ TO DISCUSS IF PETRA BED AVAILABLE. STATES THE REHAB'S ARE FULL NOW, BUT SHE WILL CHECK W LISA TO SEE IF THEY MAY BE ABLE TO DO A SHORT PETRA STAY OR IF ANY OTHER REHABS MAY HAVE SOMETHING AVAILABLE FOR A PETRA PT.
--- NOTE | 2018-05-24 13:00 | NUR ---
RCD THE REPORT PT IS ALERT AND ORIENTED AND RESTING ON BED BED LOW AND LOCKED CALL LIGHT IN REACH
[2018-05-24] MEDS: ONDANSETRON HCL 4 MG ORAL DISINTEGRATING TAB PO PRN (14:02)
[2018-05-24] MEDS: SODIUM CHLORIDE 0.9% 1000ML 1,000 ML IV SCH (15:16)
[2018-05-24] MEDS: ENOXAPARIN SOD INJ 40 MG/0.4 ML SYR SC SCH (17:00)
--- NOTE | 2018-05-24 18:39 | NUR ---
PT RESTING ON BED BED SIDE REPORT GIVEN TO ONCOMING NURSE
--- NOTE | 2018-05-24 19:00 | NUR ---
Patient visited in room during nursing rounds. Patient alert and oriented x4. Patient with pronounced weakness on LUE and LLE secondary to CVA. at bedside. Pt c/o intermittent lower back and left foot pain. Pt diapered. Call alfaro within reach. Will monitor closely.
[2018-05-24] MEDS: CEFTRIAXONE SOD 1 GM/NS 50 ML 50 ML IV SCH (19:50)
[2018-05-24] MEDS: ATORVASTATIN 20 MG TAB PO SCH (21:00)
[2018-05-25] VITALS (8 sets, daily range): BP systolic 132–181; BP diastolic 69–88
[2018-05-25] MEDS: LORAZEPAM 0.5 MG TAB PO PRN ×4 (03:27→22:01)
[2018-05-25] MEDS: AMLODIPINE BESYLATE 10 MG TAB PO SCH (03:59)
[2018-05-25] MEDS: SODIUM CHLORIDE 0.9% 1000ML 1,000 ML IV SCH ×2 (03:59→16:34)
[2018-05-25] MEDS: METOPROLOL SUCCINATE 25 MG TAB XL PO SCH ×2 (03:59→16:34)
[2018-05-25] MEDS: TRAMADOL HCL 50 MG TAB PO PRN ×3 (06:21→22:42)
[2018-05-25] MEDS: FAMOTIDINE 20 MG TAB PO SCH ×2 (06:31→16:34)
[2018-05-25] MEDS: ASPIRIN 325 MG TAB EC PO SCH (09:45)
[2018-05-25] MEDS: ENOXAPARIN SOD INJ 40 MG/0.4 ML SYR SC SCH (16:34)
--- NOTE | 2018-05-25 17:42 | NUR ---
NAN SPOKE WITH DC MAMMOGRAPHY TECHNICIAN AT [facility] [phone] SHE STATES PT DOES HAVE SNF AND ACUTE REHAB BENEFITS EMAILED US LIST OF ACUTE REHABS ORDERS FOR ACUTE REHAB EVAL NAN TO FOLLOW
[2018-05-25] MEDS: CEFTRIAXONE SOD 1 GM/NS 50 ML 50 ML IV SCH (18:17)
--- NOTE | 2018-05-25 18:32 | Progress Note ---
DATE: 05/25/2018 SUBJECTIVE: Today, her spouse states that her left leg is a little bit worse. She is a little bit better but she says she is pretty tired. PHYSICAL EXAMINATION: VITAL SIGNS: The patient's blood pressure is 132/69, heart rate is 77, O2 saturation 97% and respirations of 18. GENERAL: The patient is sleepy. She does not appear to be in distress. She is easily arousable. HEART: Regular. LUNGS: Fair air entry. ABDOMEN: Not complained of constipation at this time. IMPRESSION: Status post cerebrovascular accident . Discussed with the patient's spouse. Awaiting insurance approval for rehab. Continue therapy as tolerated. Albert Claros DO RPL/MODL /[id number]
--- NOTE | 2018-05-25 18:50 | NUR ---
HANDOFF REPORT GIVEN TO JUVENILE DETENTION OFFICER NURSE, PATIENT AWARE OF CHANGE. CALL SHIRLEY WITHIN REACH AND BED IN LOWEST POSITION. REMAINS AT BEDSIDE
--- NOTE | 2018-05-25 19:32 | NUR ---
PT IS RESTING IN BED WITH AT BEDSIDE. NO RESPIRATORY DISTRESS NOTED. BED IN THE LOWEST POSITION, LOCKED, BED ALARM ON, AND CALL LIGHT WITHIN REACH. WILL CONTINUE TO MONITOR.
[2018-05-25] MEDS: ATORVASTATIN 20 MG TAB PO SCH (21:14)
[2018-05-26] VITALS (9 sets, daily range): BP systolic 133–187; BP diastolic 65–100
[2018-05-26] MEDS: LORAZEPAM 0.5 MG TAB PO PRN ×3 (04:16→20:41)
[2018-05-26] MEDS: SODIUM CHLORIDE 0.9% 1000ML 1,000 ML IV SCH ×2 (05:27→17:37)
[2018-05-26] MEDS: TRAMADOL HCL 50 MG TAB PO PRN ×3 (06:28→22:29)
--- NOTE | 2018-05-26 07:55 | NUR ---
BLOOD PRESSURE REASSESSED READING IS 145/65, HEART RATE 72. PATIENT INCONTINENT OF URINE, SHE'S KEPT CLEAN AND DRY, SKIN PROTECTANT APPLIED TO THE SACRUM. CALL LIGHT WITHIN EASY REACH, HER IS AT THE BEDSIDE.
[2018-05-26] MEDS: AMLODIPINE BESYLATE 10 MG TAB PO SCH (08:13)
[2018-05-26] MEDS: FAMOTIDINE 20 MG TAB PO SCH ×2 (08:13→17:37)
[2018-05-26] MEDS: METOPROLOL SUCCINATE 25 MG TAB XL PO SCH ×2 (08:13→17:38)
[2018-05-26] MEDS: ASPIRIN 325 MG TAB EC PO SCH (08:13)
--- NOTE | 2018-05-26 11:35 | NUR ---
PATIENT CONDITION STABLE WITHOUT RESPIRATORY DISTRESS, SHE DENIES PAIN. CALL LIGHT WITHIN EASY REACH, HER IS AT THE BEDSIDE.
--- NOTE | 2018-05-26 11:36 | NUR ---
MET W THE AT THE BEDSIDE TO PROVIDE CHOICE FOR REHAB. CHOSE [facility]. CALLED AND SPOKE W BECCA GUAN. STATES NO BEDS AT THIS TIME AND MAY HAVE DISCHARGES NEXT WEEK. SPOKE W AND OK TO REFER TO [facility]. NAN FAXED CLINICAL TO [facility] @ OFF: [phone] / FAX: [phone].
--- NOTE | 2018-05-26 14:15 | NUR ---
PATIENT INCONTINENT OF URINE, SHE'S KEPT CLEAN AND DRY WITH SKIN PROTECTANT APPLIED TO THE SACRUM. PATIENT C/O PAIN TO THE LEGS WITH PAIN SCORE #6, MEDICATED WITH TRAMADOL ORDERED. CALL LIGHT WITHIN EASY REACH, HER AT THE BEDSIDE.
--- NOTE | 2018-05-26 17:24 | NUR ---
Nutrition Screen Note RD Recommendation for Physician: -Continue diet as ordered -Continue Ensure as ordered Plan of Care: RD following, monitoring for tolerance and adequacy Nutrition reason for involvement: LOS Primary Diagnose(s): Left-sided hemiparesis with dysarthria, left-sided facial weakness secondary to right MCA cerebrovascular accident. PMH: HTN Ht: 63in Wt: 246.03lb BMI: 43.6kg/m2 IBW: 115lb RD Assessment: (05/26) Chart reviewed. Labs and meds reviewed. 62yo F, who was admitted for CVA. MEAT SMOKER following. Visited pt in the room. Pt tolerated current diet texture but complained of poor appetite. Pt drank ~50% of Ensure. RN recorded 75-100% meal intake. Pt reported some nausea and meds were given. No vomiting episode noted. LBM 05/26. 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 RD discussed menu options and obtained food preferences. Will continue to monitor and follow. Current Diet: Cardiac diet (mechanical soft, chopped, blended soup, no cereal), Ensure Malnutrition Evaluation (05/26) The patient does not meet criteria for a specified degree of malnutrition at this time. Will re-evaluate at follow-up as appropriate. Diet Education Needs Assessment: Diet education not indicated. Nutrition Care Level: low Signed: Hillary Buchanan, MS, RD, LD
[2018-05-26] MEDS: ENOXAPARIN SOD INJ 40 MG/0.4 ML SYR SC SCH (17:37)
--- NOTE | 2018-05-26 17:50 | NUR ---
NO RESPIRATORY DISTRESS OBSERVED, PATIENT RESTING COMFORTABLY IN BED.
[2018-05-26] MEDS: ATORVASTATIN 20 MG TAB PO SCH (20:41)
[2018-05-26] MEDS: CEFTRIAXONE SOD 1 GM/NS 50 ML 50 ML IV SCH (20:41)
[2018-05-27] VITALS (8 sets, daily range): BP systolic 120–166; BP diastolic 57–93
[2018-05-27] MEDS: LORAZEPAM 0.5 MG TAB PO PRN ×3 (04:40→19:15)
[2018-05-27] MEDS: TRAMADOL HCL 50 MG TAB PO PRN ×3 (05:26→20:00)
[2018-05-27] MEDS: SODIUM CHLORIDE 0.9% 1000ML 1,000 ML IV SCH ×2 (06:30→19:15)
--- NOTE | 2018-05-27 07:30 | NUR ---
REC'D PT AAOX3, AT BEDSIDE, REPOSITIONED IN BED, NO S/S OF DISTRESS, BED IN LOWEST POSITION, SIDE RAILS UP X2, AND CALL LIGHT WITHIN REACH.
[2018-05-27] MEDS: ASPIRIN 325 MG TAB EC PO SCH (08:56)
[2018-05-27] MEDS: METOPROLOL SUCCINATE 25 MG TAB XL PO SCH ×2 (08:56→17:53)
[2018-05-27] MEDS: FAMOTIDINE 20 MG TAB PO SCH ×2 (08:56→17:53)
[2018-05-27] MEDS: AMLODIPINE BESYLATE 10 MG TAB PO SCH (08:56)
[2018-05-27] MEDS: ONDANSETRON HCL 4 MG ORAL DISINTEGRATING TAB PO PRN (11:36)
--- NOTE | 2018-05-27 12:25 | NUR ---
PT SITTING IN HIGH FOWLERS POSITION AWAKE AND NO S/S OF DISTRESS. PT ASSISTING PATIENT TO SET UP AND EAT FOR LUNCH. BED IN LOWEST POSITION, SIDE RAILS UP X2, AND CALL LIGHT WITHIN REACH.
--- NOTE | 2018-05-27 15:00 | NUR ---
CALL TO [facility] @ [phone]. SPOKE Flor SHARIF. STATES THEY WERE AWAITING CALL BACK FROM [facility]. STATES THEY HAVE A PRELIMINARY AUTH, BUT MAY GET AUTH BY THE END OF THE DAY. CM WILL AWAIT CALL BACK.
--- NOTE | 2018-05-27 17:45 | NUR ---
PT RESTING QUIETLY WITH EYES OPENED. NO S/S OF DISTRESS. BED IN LOWEST POSITION, SIDE RAILS UP X2, AND CALL LIGHT WITHIN REACH.
[2018-05-27] MEDS: ENOXAPARIN SOD INJ 40 MG/0.4 ML SYR SC SCH (17:53)
[2018-05-27] MEDS: CEFTRIAXONE SOD 1 GM/NS 50 ML 50 ML IV SCH (19:00)
--- NOTE | 2018-05-27 19:15 | NUR ---
patient received awake, alert, lying quietly in bed. no c/o pain noted. ivf continue to infuse without difficulty. patient turned and repositioned for comfort. pm assessment complete. patient medicated with ativan 0.5 mg po for anxiety per patients request. noted at the bedside. patient/ instructed to call for assistance when needed.
[2018-05-27] MEDS: ATORVASTATIN 20 MG TAB PO SCH (20:00)
--- NOTE | 2018-05-27 20:00 | NUR ---
patient medicated with ultram 50 mg po for c/o bilateral leg pain 07/25 at this time.
[2018-05-28] VITALS (7 sets, daily range): BP systolic 129–167; BP diastolic 65–99
[2018-05-28] MEDS: LORAZEPAM 0.5 MG TAB PO PRN ×4 (01:16→20:20)
--- NOTE | 2018-05-28 01:16 | NUR ---
patient medicated with ativan 0.5 mg po for c/o anxiety at this time. remains at the bedside.
[2018-05-28] MEDS: TRAMADOL HCL 50 MG TAB PO PRN ×4 (03:23→23:18)
--- NOTE | 2018-05-28 03:24 | NUR ---
PATIENT IN TEARS, SHE C/O SEVERE PAIN TO THE LEGS WITH INVOLUNTARY LEGS MOVEMENT OBSERVED. MEDICATED WITH TRAMADOL ORDERED, THE PATIENT MASSAGING HER LEGS FOR COMFORT. CALL LIGHT WITHIN EASY REACH, WILL NOTIFY THE PRIMARY NURSE THAT THE PATIENT WAS MEDICATED FOR PAIN ORDERED.
--- NOTE | 2018-05-28 04:00 | NUR ---
patient c/o constipation. warm prune juice x 2 given. will continue to monitor.
--- NOTE | 2018-05-28 04:40 | NUR ---
moderated size, brown, soft bm noted per bedpan at this time.
--- NOTE | 2018-05-28 07:30 | NUR ---
PT IN BED SLEEPING NO DISTRESS NOTED ,DENIES CHEST PAIN
--- NOTE | 2018-05-28 08:10 | NUR ---
PT UP IN BED RESTING,C/O ANXIETY MEDICATED,NO DISTRESS NOTED. AT BEDSIDE
[2018-05-28] MEDS: FAMOTIDINE 20 MG TAB PO SCH ×2 (08:17→17:16)
[2018-05-28] MEDS: ASPIRIN 325 MG TAB EC PO SCH (08:17)
[2018-05-28] MEDS: METOPROLOL SUCCINATE 25 MG TAB XL PO SCH ×2 (08:17→17:15)
[2018-05-28] MEDS: AMLODIPINE BESYLATE 10 MG TAB PO SCH (08:17)
--- NOTE | 2018-05-28 11:30 | NUR ---
PHYSICAL THERAPY ASSISTED PT UP TO W/C TOLERATED WELL,PT HAD VERY LARGE BM
--- NOTE | 2018-05-28 14:23 | NUR ---
PT C/O ANXIETY MEDICATED.
--- NOTE | 2018-05-28 17:14 | Progress Note ---
DATE: Internal Medicine Progress Note SUBJECTIVE: The patient is doing well. No significant complaint. OBJECTIVE: VITAL SIGNS: Blood pressure is 166/99, temperature 97.5, heart rate 81 per minute, respiratory rate is 22 per minute, and oxygen saturation 96%. HEART: Regular rhythm. No murmur or added sounds. LUNGS: Clear bilaterally. ABDOMEN: Soft. LABORATORY DATA: BMP; sodium 137, potassium 4.0, chloride 104, CO2 28, BUN 5, creatinine 0.65, and glucose 101. CBC; white count 8.91, hemoglobin 12.6, hematocrit 39.8, and platelet count 224,000. PT 11.3, INR 0.78, and PTT 52.4. AST 15, ALT 8, total bilirubin 0.4, alkaline phosphatase 73. FINAL IMPRESSION: 1. Right cerebrovascular accident with left hemiplegia. 2. Hypertension. 3. Hyperlipidemia. PLAN OF TREATMENT: Continue ceftriaxone 1 g IV daily. Stop IV fluids. Continue aspirin 325 mg daily, Pepcid 20 mg twice a day, Zofran 4 mg IV q.4 hours as needed, Lovenox 40 mg subcutaneously daily for DVT prophylaxis, lorazepam 0.5 mg q.6 hours as needed, amlodipine 10 mg daily, tramadol 50 mg q.4 hours as needed, Lipitor 20 mg daily, metoprolol 50 mg twice a day. The patient is going to a rehab unit. Continue current medication regimen . MD SAMMIE Pierre/RANDA /[id number]
--- NOTE | 2018-05-28 17:15 | NUR ---
PT C/O LT HIP AND LEG PAIN MEDICATED,
[2018-05-28] MEDS: CEFTRIAXONE SOD 1 GM/NS 50 ML 50 ML IV SCH (20:12)
[2018-05-28] MEDS: ATORVASTATIN 20 MG TAB PO SCH (20:12)
[2018-05-29] VITALS (7 sets, daily range): BP systolic 128–144; BP diastolic 70–84
[2018-05-29] MEDS: LORAZEPAM 0.5 MG TAB PO PRN ×3 (02:40→23:06)
--- NOTE | 2018-05-29 07:30 | NUR ---
REC'D PT AAOX3, AT BEDSIDE, NO S/S OF DISTRESS, SIDE RAILS UP X2, BED AT LOWEST POSITION, AND CALL LIGHT WITHIN REACH.
[2018-05-29] MEDS: AMLODIPINE BESYLATE 10 MG TAB PO SCH (08:17)
[2018-05-29] MEDS: ASPIRIN 325 MG TAB EC PO SCH (08:17)
[2018-05-29] MEDS: METOPROLOL SUCCINATE 25 MG TAB XL PO SCH ×2 (08:17→16:37)
[2018-05-29] MEDS: FAMOTIDINE 20 MG TAB PO SCH ×2 (08:17→16:37)
[2018-05-29] MEDS: TRAMADOL HCL 50 MG TAB PO PRN ×3 (08:18→19:52)
[2018-05-29] MEDS: ONDANSETRON HCL 4 MG ORAL DISINTEGRATING TAB PO PRN (08:45)
--- NOTE | 2018-05-29 11:45 | NUR ---
PT RESTING QUIETLY WITH EYES OPENED. GRANDAUGHTER AT BEDSIDE. NO S/S OF DISTRESS. BED IN THE LOWEST POSITION, SIDE RAILS UP X2, AND CALL LIGHT WITHIN REACH.
--- NOTE | 2018-05-29 14:15 | NUR ---
ADMINISTERED PAIN PILL PER PT COMPLAIN OF PAIN. AND GRANDAUGTHER AT BEDSIDE. NO S/S OF DISTRESS. BED IN LOWEST POSITION, SIDE RAILS UP X2, AND CALL LIGHT WITHIN PLACE.
[2018-05-29] MEDS: ENOXAPARIN SOD INJ 40 MG/0.4 ML SYR SC SCH (16:38)
--- NOTE | 2018-05-29 16:43 | Progress Note ---
DATE: Internal Medicine Progress Note SUBJECTIVE: She is doing well. No significant complaint. PHYSICAL EXAMINATION: VITAL SIGNS: Blood pressure 142/83, temperature 96.4, heart rate 65 per minute, respiratory rate 18 per minute, oxygen saturation 94%. HEART: Showed regular rhythm. Normal S1, S2 sound. LUNGS: Clear bilaterally. NEUROLOGIC: Show left upper extremity hemiplegia. LABORATORY DATA: BMP; sodium 137, potassium 4.0, chloride 104, CO2 28, BUN 5, creatinine 0.65, glucose 101. CBC; showed a white blood count of 8.91, hemoglobin 12.6, hematocrit 39.8, platelet count 224,000. PT 11.3, PTT 52.4, INR 0.78. AST 15, ALT 8, total bilirubin 0.4, alkaline phosphatase 73. IMPRESSION: Right cerebrovascular accident with left hemiplegia, hypertension, and obesity. PLAN OF TREATMENT: Waiting for her to be transferred to an inpatient rehab. Continue ceftriaxone once a day, aspirin 325 mg once a day, Pepcid 20 mg twice a day, amlodipine 10 mg daily, tramadol 50 mg q.4 hours as needed for pain, Lipitor 20 mg daily, metoprolol 50 mg twice a day, Zofran 4 mg IV q.4 hours as needed, lorazepam 0.5 mg q.6 hours as needed pain. Continue physical, occupation and speech therapy. Awaiting transfer to inpatient rehab. MD SAMMIE Pierre/RANDA /[id number]
--- NOTE | 2018-05-29 16:45 | NUR ---
PT ON LEFT SIDE WITH PILLOW SUPPORTING HER RIGHT SIDE OF HER BACK. AT BEDSIDE, BED IN LOWEST POSITION, SIDE RAILS UP X2, AND CALL LIGHT WITHIN REACH.
[2018-05-29] MEDS: CEFTRIAXONE SOD 1 GM/NS 50 ML 50 ML IV SCH (19:52)
[2018-05-29] MEDS: ATORVASTATIN 20 MG TAB PO SCH (19:52)
[2018-05-30] VITALS (8 sets, daily range): BP systolic 131–142; BP diastolic 65–84
[2018-05-30] MEDS: TRAMADOL HCL 50 MG TAB PO PRN ×3 (03:09→16:15)
[2018-05-30] MEDS: ONDANSETRON HCL 4 MG ORAL DISINTEGRATING TAB PO PRN ×2 (03:17→12:07)
[2018-05-30] MEDS: LORAZEPAM 0.5 MG TAB PO PRN ×3 (05:58→19:29)
--- NOTE | 2018-05-30 07:21 | NUR ---
PATIENT IN BED RESTING WITH NO RESPIRATORY DISTRESS. WEAKNESS TO LEFT SIDE OF BODY, LEFT ARM ELEVATED ON PILLOW. BED IN LOWER POSITION, CALL LIGHT AT REACH. FAMILY AT BED SIDE, INSTRUCTED TO CALL FOR ASSISTANCE NEEDED.
[2018-05-30] MEDS: FAMOTIDINE 20 MG TAB PO SCH ×2 (07:42→16:42)
[2018-05-30] MEDS: ASPIRIN 325 MG TAB EC PO SCH (09:20)
[2018-05-30] MEDS: METOPROLOL SUCCINATE 25 MG TAB XL PO SCH ×2 (09:21→17:38)
[2018-05-30] MEDS: AMLODIPINE BESYLATE 10 MG TAB PO SCH (09:21)
--- NOTE | 2018-05-30 11:35 | NUR ---
PATIENT REPOSITIONED IN BED BY 2 STAFFS. REFUSED TO BE POSITIONED ON HER RIGHT STATING "I CAN ONLY SLEEP ON MY LEFT OR MY BACK". BED IN LOWER POSITION, CALL LIGHT AT REACH. FAMILY AT BED SIDE.
--- NOTE | 2018-05-30 16:18 | NUR ---
PATIENT C/O GENERALIZED PAIN. PAIN MEDICATION ADMINISTERED ORDERED. WILL CLOSELY MONITOR.
--- NOTE | 2018-05-30 16:50 | NUR ---
NAN SPOKE WITH KOLE AT [facility] SHE STATES WE HAVE PRELIMINARY AUTH AND ANTICIPATES FINAL AUTH TOMORROW 05/31
[2018-05-30] MEDS: ENOXAPARIN SOD INJ 40 MG/0.4 ML SYR SC SCH (17:38)
--- NOTE | 2018-05-30 19:15 | NUR ---
patient received awake, alert, lying quietly in bed. no c/o pain noted. many family members noted at the bedside. pm assessment complete. patient/family instructed to call for assistance when needed.
--- NOTE | 2018-05-30 19:29 | NUR ---
patient medicated with ativan 0.5 mg po per patients request at this time.
[2018-05-30] MEDS: CEFTRIAXONE SOD 1 GM/NS 50 ML 50 ML IV SCH (20:00)
--- NOTE | 2018-05-30 20:00 | NUR ---
new iv #22 placed to right hand x 1 stick at this time. previous iv to right hand d/c'd and clean dry dressing applied to sight.
[2018-05-30] MEDS: ATORVASTATIN 20 MG TAB PO SCH (21:00)
[2018-05-31] VITALS: BP 143/83
[2018-05-31] MEDS: TRAMADOL HCL 50 MG TAB PO PRN ×2 (00:30→06:36)
[2018-05-31 04:00] VITALS: BP 123/74
--- NOTE | 2018-05-31 04:40 | NUR ---
patient appears to be resting quietly. no c/o pain noted. remains at the bedside throughout the night.
[2018-05-31] MEDS: LORAZEPAM 0.5 MG TAB PO PRN ×2 (05:25→11:34)
--- NOTE | 2018-05-31 05:25 | NUR ---
patient medicated with ativan 0.5 mg po for c/o anxiety at this time.
--- NOTE | 2018-05-31 06:36 | NUR ---
patient medicated with ultram 50 mg po for c/o bilateral leg pain 5/10 at this time. patient turned and repositioned for comfort. remains at the bedside.
--- NOTE | 2018-05-31 07:19 | NUR ---
PATIENT IN BED RESTING ON THE LEFT SIDE, NO RESPIRATORY DISTRESS OBSERVED. ASSISTED WITH DIAPER CHANGE. BED IN LOWER POSITION, CALL LIGHT AT REACH.
[2018-05-31 07:25] VITALS: BP 153/67
[2018-05-31 07:56] VITALS: BP 153/67
[2018-05-31] MEDS: FAMOTIDINE 20 MG TAB PO SCH (07:56)
[2018-05-31] MEDS: ASPIRIN 325 MG TAB EC PO SCH (09:29)
[2018-05-31] MEDS: AMLODIPINE BESYLATE 10 MG TAB PO SCH (09:29)
[2018-05-31] MEDS: METOPROLOL SUCCINATE 25 MG TAB XL PO SCH (09:30)
[2018-05-31 12:38] VITALS: BP 157/67
--- NOTE | 2018-05-31 14:21 | NUR ---
PATIENT IS ABOUT TO BE TRANSFERRED TO [facility]. SPOKE TO QAMAR WHO STATED THAT THERE IS NO ROOM AVAILABLE AT THIS TIME. SHE WILL CALL BACK WHEN THE ROOM IS AVAILABLE. AWAITING CALL BACK.
[2018-05-31 16:35] VITALS: BP 160/74
--- NOTE | 2018-05-31 16:35 | NUR ---
PATIENT TRANSFERRED TO [facility]. REPORT CALLED AND GIVEN TO RECEIVING NURSE. IV TO RIGHT HAND INTACT AND PATENT. ALL PERSONAL ITEMS TAKEN WITH PATIENT. PATIENT'S AT BED SIDE AT THE TIME OF TRANSFER. LEFT UNIT ON STRETCHER PER AMBULANCE.
--- NOTE | 2018-05-31 17:39 | Progress Note ---
DATE: 05/31/2018 SUBJECTIVE: Ms. Johnson is able to go to rehab. OBJECTIVE: VITAL SIGNS: Temperature 96.4, respirations 20, heart rate of 61, and O2 sats 95%. GENERAL: The patient is feeling okay. Spouse is at the bedside. HEART: Regular rate and rhythm. LUNGS: . Overall, she is making progress. She did well over an inpatient rehab. IMPRESSION: Status post cerebrovascular accident with left-sided hemiparesis. PLAN: To [facility] for rehab. Discussed with staff. Albert Claros DO RPL/MODL /[id number]
== END 2018-05-31 16:32 | DRG 65 ==
LOC: ER 11:51 → ERHOLD 15:00 → MED/SURG 17:27 → MED/SURG3 05-23 15:27
DX: I63.9 Cerebral infarction, unspecified (principal); G81.94 Hemiplegia, unspecified affecting left nondominant side; Z68.41 Body mass index [BMI] 40.0-44.9, adult; F17.200 Nicotine dependence, unspecified, uncomplicated; I10 Essential (primary) hypertension; F03.90 Unspecified dementia, unspecified severity, without behavioral disturbance, psychotic disturbance, mood disturbance, and anxiety; E78.5 Hyperlipidemia, unspecified; E66.01 Morbid (severe) obesity due to excess calories; W19.XXXA Unspecified fall, initial encounter; R26.9 Unspecified abnormalities of gait and mobility; I65.23 Occlusion and stenosis of bilateral carotid arteries; I69.922 Dysarthria following unspecified cerebrovascular disease
CPT/HCPCS: 36415; 70450; 70496; 70498; 70551; 71045; 80048; 80053; 80061; 81001; 82550; 82553; 83036; 84484; 85025; 85610; 85730; 93005; 93306; 93880; 96372; 97139; 99284; J0360; J0696; J1650; J2060; J2405; J7030; Q9967